=== PATIENT | female | born 1960 | race Caucasian/White ===

== ENCOUNTER 2021-03-28 22:26 | Emergency (ER) | payer OTHER ==
[~2021-03-28 22:26] MED LIST: BENTYL10 MG PO; FIORICET1 EACH PO; LISINOPRIL-HCT1 EAC2 PO; NORCO 5-325 TA1 EACH PO; ONDANSETRON HCL4 MG PO; PRILOSEC20 MG PO; PRINIVIL20 MG PO; ZOFRAN4 MG PO
[2021-03-29 00:42] LABS: BASOPHIL 0.4 % (0-2); EOSINOPHIL 2.3 % (0-5); HCT 38.2 % (37.0-47.0); HGB 12.5 g/dl (12.5-16.0); LYMPHOCYTE 23.8 % (15-48); MCH 28.5 pg (25.0-31.0); MCHC 32.7 g/dL (32.0-36.0); MCV 87.2 fL (78.0-100.0); MONOCYTE 7.7 % (0-12); MPV 10.8 fL (6.0-9.5); NEUTROPHIL 65.3 % (41-80); NRBC 0; PLT 290 K/uL (150-400); RBC 4.38 M/uL (4.20-5.40); RDW 15.6 % (11.5-14.0); WBC 7.4 K/uL (4.0-10.5)
[2021-03-29 00:46] LABS: BILIRUBIN NEGATIVE (NEGATIVE); BLOOD NEGATIVE Ery/uL (NEGATIVE); CLARITY CLEAR (CLEAR); COLOR YELLOW (YELLOW); GLUCOSE (U) NORMAL (NORMAL); LEUKOCYTES TRACE Leu/uL (NEGATIVE); NITRITE NEGATIVE (NEGATIVE); PROTEIN NEGATIVE (NEGATIVE); SPECIFIC GRAVITY 1.015 (1.001-1.030); UROBILINOGEN 0.2 mg/dL (0.2-1.0)
[2021-03-29 00:46] LABS: INR 0.97 (0.9-1.2); PROTHROMBIN TIME 12.2 SECONDS (11.4-13.6); PTT 28.3 SECONDS (22.2-34.7)
[2021-03-29 00:47] LABS: D-DIMER 0.55 ug/mLFEU (0.00-0.41)
[2021-03-29 00:48] LABS: ALBUMIN 3.4 g/dL (3.4-5.0); BILIRUBIN - TOTAL 0.2 mg/dL (0.2-1.0); BUN/CREAT RATIO (CALC) 22.7 RATIO; CREATININE 0.75 mg/dL (0.51-0.95); GLOBULIN (CALCULATION) 3.7 g/dL; POTASSIUM 4.2 mmol/L (3.5-5.1); TOTAL PROTEIN 7.1 g/dL (6.4-8.2)
[2021-03-29 01:00] LABS: PRO-BNP 195 pg/mL (<125)
[2021-03-29 01:11] LABS: BACTERIA TRACE; URINARY WBC RARE
[2021-03-29 01:18] LABS: LACTIC ACID 1.3 mmol/L (0.4-1.9)
[2021-03-29] MEDS ORDERED: HCTZ25 MG PO (02:15)
[2021-03-29] MEDS ORDERED: NORVASC5 MG PO (02:15)
== END 2021-03-29 02:34 | disposition home or self-care (01) ==
LOC: FER 22:26
PROVIDERS: Emergency Medicine
DX: I10 Essential (primary) hypertension (principal); R06.02 Shortness of breath; R51.9 Headache, unspecified; R42 Dizziness and giddiness; Z79.899 Other long term (current) drug therapy; Z86.16 Personal history of COVID-19
CPT/HCPCS: 36415; 70450; 71250; 80053; 81001; 83605; 83615; 83735; 83880; 84145; 84484; 85025; 85379; 85610; 85730; 93005; J3490

== ENCOUNTER 2021-10-18 20:45 | Emergency (ER) | payer OTHER ==
[~2021-10-18 20:45] MED LIST changes: +HCTZ25 MG PO; +NORVASC5 MG PO
[2021-10-18 21:44] LABS: BASOPHIL 0.3 % (0-2); EOSINOPHIL 0.1 % (0-5); HCT 38.7 % (37.0-47.0); HGB 12.2 g/dl (12.5-16.0); LYMPHOCYTE 30.3 % (15-48); MCH 27.2 pg (25.0-31.0); MCHC 31.5 g/dL (32.0-36.0); MCV 86.4 fL (78.0-100.0); MONOCYTE 5.6 % (0-12); MPV 10.6 fL (6.0-9.5); NEUTROPHIL 63.3 % (41-80); NRBC 0; PLT 279 K/uL (150-400); RBC 4.48 M/uL (4.20-5.40); RDW 15.6 % (11.5-14.0); WBC 9.1 K/uL (4.0-10.5)
[2021-10-18 22:03] LABS: ALBUMIN 4.1 g/dL (3.4-5.0); ALKALINE PHOSHATASE 112 U/L (46-116); ALT 30 U/L (14-59); AST 32 U/L (15-37); BILIRUBIN - TOTAL 1.5 mg/dL (0.2-1.0); BUN 26 mg/dL (7-18); BUN/CREAT RATIO (CALC) 24.1 RATIO; CHLORIDE 104 mmol/L (98-107); CO2 (BICARBONATE) 23 mmol/L (21-32); CPK 152 U/L (26-192); CREATININE 1.08 mg/dL (0.51-0.95); GLOBULIN (CALCULATION) 3.6 g/dL; GLUCOSE 207 mg/dL (74-106); POTASSIUM 3.3 mmol/L (3.5-5.1); TOTAL PROTEIN 7.7 g/dL (6.4-8.2)
[2021-10-18 22:15] LABS: BILIRUBIN NEGATIVE (NEGATIVE); BLOOD TRACE-INTACT Ery/uL (NEGATIVE); CLARITY CLEAR (CLEAR); COLOR YELLOW (YELLOW); GLUCOSE (U) TRACE mg/dL (NORMAL); LEUKOCYTES NEGATIVE Leu/uL (NEGATIVE); NITRITE NEGATIVE (NEGATIVE); PROTEIN 1+ mg/dL (NEGATIVE); SPECIFIC GRAVITY >=1.030 (1.001-1.030); UROBILINOGEN 0.2 mg/dL (0.2-1.0)
[2021-10-18 22:16] LABS: AMPHETAMINES POSITIVE (NEGATIVE); BARBITURATES NEGATIVE (NEGATIVE); ECSTASY (MDMA) POSITIVE (NEGATIVE); MARIJUANA (THC) NEGATIVE (NEGATIVE); METHADONE NEGATIVE (NEGATIVE); OPIATES NEGATIVE (NEGATIVE); OXYCODONE NEGATIVE (NEGATIVE)
[2021-10-18 22:25] LABS: BACTERIA 1+
[2021-10-19] MEDS ORDERED: LEVAQUIN750 MG PO (03:34)
== END 2021-10-19 03:53 | disposition home or self-care (01) ==
LOC: FER 20:45
PROVIDERS: Emergency Medicine Emergency Medical Services
DX: T43.621A Poisoning by amphetamines, accidental (unintentional), initial encounter (principal); J18.9 Pneumonia, unspecified organism; I10 Essential (primary) hypertension; J44.9 Chronic obstructive pulmonary disease, unspecified
CPT/HCPCS: 36415; 36600; 70450; 71045; 71250; 72125; 80053; 80305; 81001; 82550; 82803; 83605; 84484; 85025; 85379; 93005; 96372; G0480; J0696; J7030